=== PATIENT | female | born 1950 | race Caucasian/White ===

== ENCOUNTER 2016-06-24 07:25 | Emergency (ER) | payer OTHER ==
[~2016-06-24] VITALS: Ht 157.5 cm; Wt 73.0 kg
[~2016-06-24 07:25] MED LIST: 1-ME1LIQ PO; ALBU8I INH; BENA40TA PO; CRES20TA PO; GLIM2TAB PO; LORT5TAB PO; METF500 PO; MICR12.5 PO; OXYB5TAB PO; PRED50TA PO; VENL-39 PO; ZITH250T PO
[2016-06-24 07:27] VITALS: BP 144/89; PULSE 120; RESP 16; TEMP 98.5; O2SAT 98
[2016-06-24] MEDS ORDERED: BENA40TA PO (07:49)
[2016-06-24] MEDS ORDERED: BLAC540C PO (07:49)
[2016-06-24] MEDS ORDERED: ROSU40 PO (07:49)
[2016-06-24] MEDS ORDERED: METF500T PO (07:49)
[2016-06-24] MEDS ORDERED: HYDR-3533 PO (07:49)
[2016-06-24] MEDS ORDERED: VENL75TA PO (07:49)
[2016-06-24] MEDS ORDERED: LACTCAP8 PO (07:49)
[2016-06-24] MEDS ORDERED: GLIM2TAB PO (07:49)
[2016-06-24] MEDS ORDERED: OXYB5TAB10 PO (07:49)
[2016-06-24] MEDS ORDERED: GABA300C5 PO (07:49)
[2016-06-24] MEDS ORDERED: AMLO10TA2 PO (07:49)
[2016-06-24] MEDS ORDERED: LORATADINE 10 MG TAB PO ONE (08:00)
[2016-06-24] MEDS ORDERED: methylPREDNISolone SOD SUCC 125 MG/2 ML VIAL IV PUSH ONE (08:00)
[2016-06-24] MEDS ORDERED: SODIUM CHLOR 0.9% 1000 ML INJ 1,000 ML IV SCH (08:00)
[2016-06-24] MEDS ORDERED: PRED-503 PO (08:27)
[2016-06-24] MEDS ORDERED: HYDR25TA5 PO (08:27)
[2016-06-24] MEDS ORDERED: LORA10TA PO (08:27)
--- NOTE | 2016-06-24 08:28 | PD ---
HPI Chief Complaint: Allergic/Adverse Reaction Time Seen by Provider: 07:41 Travel History International Travel<30 days: No Contact w/Intl Traveler<30days: No Traveled to known affect area: No History of Present Illness HPI This 66-year-old woman presents to the emergency department complaining of itchy rash over trunk, as well as swelling to her lips starting yesterday. She is on fosinopril. They recently sprayed her yard for fleas. She has a puppy but she's had it for some time. She is not really an atopic person or had a lot of trouble with allergic reactions in the past. Starting yesterday she started getting itchy red rash her back and chest as well as swelling to her lower lip. 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 No trouble swallowing. No shortness of breath. No other complaints. History Past Medical History Narrative Medical Hypertension Diabetes Influenza Vaccination: Yes Menopausal: Yes Social History Alcohol Use: Yes (WINE X 2 DAILY) Tobacco Use: Yes (1/2 PPD) Allergies-Medications (Allergen,Severity, Reaction): Coded Allergies: Percocet (Verified Allergy, Severe, itchy skin, 06/24/16) Reported Meds & Prescriptions Reported Meds & Active Scripts Active Reported Probiotic (Lactobacillus Acidophilus) 1 Cap Cap 1 Cap PO TIDAC Black Cohosh (Black Cohosh Extract) 40 Mg Cap 40 Mg PO DAILY Metformin (Metformin HCl) 500 Mg Tab 500 Mg PO BIDPC With meals Glimepiride 2 Mg Tab 2 Mg PO DAILY Take with breakfast or first main meal Lortab (Hydrocodone-Acetaminophen) 5-325 Mg Tab 1 Tab PO Q4H PRN Gabapentin 300 Mg Cap 300 Mg PO TID Crestor (Rosuvastatin Calcium) 40 Mg Tab 40 Mg PO DAILY Amlodipine (Amlodipine Besylate) 10 Mg Tab 10 Mg PO DAILY Benazepril (Benazepril HCl) 40 Mg Tab 40 Mg PO DAILY Effexor (Venlafaxine HCl) 75 Mg Tab 75 Mg PO DAILY Ditropan (Oxybutynin Chloride) 5 Mg Tab 5 Mg PO Q12HR Review of Systems Except as stated in HPI: all other systems reviewed are Neg Physical Exam Narrative GENERAL: Well-appearing 66 year-old woman, no acute distress. SKIN: Warm and dry. Diffuse urticarial rash in the chest and trunk and back. HEAD: Atraumatic. Normocephalic. HEENT: Some swelling of the upper lip, bilaterally. Oropharynx is normal without evidence of tongue or oropharyngeal swelling. EYES: Pupils equal and round. No scleral icterus. No injection or drainage. ENT: No nasal bleeding or discharge. Mucous membranes pink and moist. NECK: Trachea midline. No JVD. CARDIOVASCULAR: Regular rate and rhythm. No murmur appreciated. RESPIRATORY: No accessory muscle use. Clear to auscultation. Breath sounds equal bilaterally. No wheezing. GASTROINTESTINAL: Abdomen soft, non-tender, nondistended. Hepatic and splenic margins not palpable. MUSCULOSKELETAL: No obvious deformities. No edema. Data Data Last Documented VS Vital Signs Date Time Temp Pulse Resp B/P Pulse Ox O2 Delivery O2 Flow Rate FiO2 06/24/16 07:37 129 06/24/16 07:27 98.5 16 144/89 98 Orders Sodium Chlor 0.9% 1000 Ml Inj (Ns 1000 M (06/24/16 08:00) Methylprednisolone So Succ Inj (Solumedr (06/24/16 08:00) Loratadine (Claritin) (06/24/16 08:00) MDM Medical Decision Making Medical Screen Exam Complete: Yes Emergency Medical Condition: Yes Differential Diagnosis Allergic reaction, angioedema, adverse reaction to EDITH inhibitor, other Narrative Course 66 old woman with allergic type angioedema. Urticaria as well. We'll place on steroids antihistamines. Even with the urticaria, we'll still have her stop her lisinopril. No clear precipitants otherwise. Diagnosis Primary Impression: Urticaria Additional Impression: Angioedema Qualified Code: T78.3XXA - Angioedema, initial encounter Additional Instructions: Takes prednisone as prescribed. Follow-up with her primary doctor in 2-3 days if not completely well. Change benzapril to HCTZ. Stop benazapril. Return to the emergency department for any worsening swelling, swallowing difficulty, or any trouble breathing. Med/Other Pt SpecificInfo: Prescription(s) given Scripts Hydrochlorothiazide 25 Mg Tab25 Mg PO DAILY #30 TAB Ref 0 Prov:Obdulio Kilpatrick MD 06/24/16 Loratadine 10 Mg Tab10 Mg PO DAILY 3 Days Ref 0 Prov:Obdulio Kilpatrick MD 06/24/16 Prednisone (Deltasone)20 Mg Tab20 Mg PO BID 3 Days Prov:Obdulio Kilpatrick MD 06/24/16 Disposition: 01 DISCHARGE HOME Condition: Stable Obdulio Kilpatrick MD Jun 24, 2016 08:27
[2016-06-24 08:38] VITALS: BP 133/70; PULSE 98; RESP 18; O2SAT 98
== END 2016-06-24 08:52 | disposition home or self-care (01) ==
LOC: PHED 07:25
DX: T78.3XXA Angioneurotic edema, initial encounter (principal)
CPT/HCPCS: 96361; 96374; 99283; J2930; J7030

== ENCOUNTER 2016-10-10 08:54 | Emergency (ER) | payer OTHER ==
[~2016-10-10] VITALS: Ht 157.5 cm; Wt 71.0 kg
[~2016-10-10 08:54] MED LIST changes: -1-ME1LIQ PO; -ALBU8I INH; +AMLO10TA2 PO; +BLAC540C PO; -CRES20TA PO; +GABA300C5 PO; +HYDR-3533 PO; +HYDR25TA5 PO; +LACTCAP8 PO; +LORA10TA PO; -LORT5TAB PO; -METF500 PO; +METF500T PO; -MICR12.5 PO; -OXYB5TAB PO; +OXYB5TAB10 PO; +PRED-503 PO; -PRED50TA PO; +ROSU40 PO; -VENL-39 PO; +VENL75TA PO; -ZITH250T PO
[2016-10-10 08:58] VITALS: BP 145/93; PULSE 99; RESP 16; TEMP 98.4; O2SAT 96
[2016-10-10] MEDS ORDERED: CHERSYP2 PO (09:13)
[2016-10-10] MEDS ORDERED: PRED10PA PO (09:13)
[2016-10-10] MEDS ORDERED: ZITH500T PO (09:13)
--- NOTE | 2016-10-10 09:14 | PD ---
HPI Chief Complaint: Cold / Flu Symptoms Time Seen by Provider: 09:09 Travel History International Travel<30 days: No Contact w/Intl Traveler<30days: No Traveled to known affect area: No History of Present Illness HPI Patient presents for a productive cough and subjective fever for 4 days. She is a smoker. Denies nausea vomiting or diarrhea. No new rashes. Denies sick contacts. PFSH Past Medical History Depression: Yes Cardiovascular Problems: Yes (htn) High Cholesterol: Yes Diabetes: Yes (type 2) Patient Takes Glucophage: Yes Diminished Hearing: No Hypertension: Yes Menopausal: Yes Past Surgical History Genitourinary Surgery: Yes (BLADDER LIFT 05/2014) Social History Alcohol Use: Yes (WINE X 2 DAILY) Tobacco Use: Yes (05/24 PPD) Substance Use: No Allergies-Medications (Allergen,Severity, Reaction): Coded Allergies: Percocet (Verified Allergy, Severe, itchy skin, 10/10/16) Reported Meds & Prescriptions Reported Meds & Active Scripts Active Hydrochlorothiazide 25 Mg Tab 25 Mg PO DAILY Loratadine 10 Mg Tab 10 Mg PO DAILY 3 Days Deltasone (Prednisone) 20 Mg Tab 20 Mg PO BID 3 Days Reported Probiotic (Lactobacillus Acidophilus) 1 Cap Cap 1 Cap PO TIDAC Black Cohosh (Black Cohosh Extract) 40 Mg Cap 40 Mg PO DAILY Metformin (Metformin HCl) 500 Mg Tab 500 Mg PO BIDPC With meals Glimepiride 2 Mg Tab 2 Mg PO DAILY Take with breakfast or first main meal Lortab (Hydrocodone-Acetaminophen) 5-325 Mg Tab 1 Tab PO Q4H PRN Gabapentin 300 Mg Cap 300 Mg PO TID Crestor (Rosuvastatin Calcium) 40 Mg Tab 40 Mg PO DAILY Amlodipine (Amlodipine Besylate) 10 Mg Tab 10 Mg PO DAILY Benazepril (Benazepril HCl) 40 Mg Tab 40 Mg PO DAILY Effexor (Venlafaxine HCl) 75 Mg Tab 75 Mg PO DAILY Ditropan (Oxybutynin Chloride) 5 Mg Tab 5 Mg PO Q12HR Physical Exam Narrative GENERAL: Well-nourished, well-developed patient. SKIN: Focused skin assessment warm/dry. HEAD: Normocephalic. EYES: No scleral icterus. No injection or drainage. NECK: Supple, trachea midline. No JVD or lymphadenopathy. CARDIOVASCULAR: Regular rate and rhythm without murmurs, gallops, or rubs. RESPIRATORY: Breath sounds coarse bilateral bases. No accessory muscle use. GASTROINTESTINAL: Abdomen soft, non-tender, nondistended. MUSCULOSKELETAL: No cyanosis, or edema. BACK: Nontender without obvious deformity. No CVA tenderness. Data Data Last Documented VS Vital Signs Date Time Temp Pulse Resp B/P Pulse Ox O2 Delivery O2 Flow Rate FiO2 10/10/16 08:58 98.4 99 16 145/93 96 MDM Medical Decision Making Medical Screen Exam Complete: Yes Emergency Medical Condition: Yes Differential Diagnosis COPD exacerbation, bronchitis, upper respiratory infection, pneumonia Narrative Course Assessment and plan discussed with patient at bedside Diagnosis Primary Impression: COPD exacerbation Patient Instructions: General Instructions Additional Instructions: Rest fluids and Motrin, encourage smoking cessation, follow-up with PCP Med/Other Pt SpecificInfo: Prescription(s) given Scripts Prednisone (21) 10 mg tab Dose Pack 10 Mg Pack10 Mg PO DIRECTED #1 DSPK Ref 0 Prov:Eduard Romano MD 10/10/16 Guaifenesin-Codeine Liq (Cheratussin AC Liq)100-10 Mg/5 Ml Syrp5-10 Ml PO Q4H PRN (COUGH AND COLD SYMPTOMS) #120 ML Ref 0 Do not exceed 6 doses/24 hrs. Prov:Eduard Romano MD 10/10/16 Azithromycin (Zithromax)500 Mg [id number] Mg PO DAILY #7 TAB Ref 0 Prov:Eduard Romano MD 10/10/16 Disposition: 01 DISCHARGE HOME Condition: Good Eduard Romano MD October 10, 2016 09:14
[2016-10-10] MEDS ORDERED: IPRASOL INH (09:19)
[2016-10-10] MEDS ORDERED: MIRA50TA PO (09:20)
== END 2016-10-10 09:36 | disposition home or self-care (01) ==
LOC: PHEFT 08:54
DX: J44.1 Chronic obstructive pulmonary disease with (acute) exacerbation (principal); E11.9 Type 2 diabetes mellitus without complications; E78.00 Pure hypercholesterolemia, unspecified; I10 Essential (primary) hypertension; F17.210 Nicotine dependence, cigarettes, uncomplicated; Z79.84 Long term (current) use of oral hypoglycemic drugs
CPT/HCPCS: 99283

== ENCOUNTER 2016-12-07 19:37 | Emergency (ER) | payer OTHER ==
[~2016-12-07] VITALS: Ht 157.5 cm; Wt 72.1 kg
[~2016-12-07 19:37] MED LIST changes: -AMLO10TA2 PO; -BENA40TA PO; +CHERSYP2 PO; -HYDR25TA5 PO; +IPRASOL INH; +MIRA50TA PO; -OXYB5TAB10 PO; +PRED10PA PO; +ZITH500T PO
[2016-12-07 19:44] VITALS: BP 135/66; PULSE 83; RESP 18; TEMP 98.2; O2SAT 96
[2016-12-07] MEDS ORDERED: CYMB30CA PO (20:08)
[2016-12-07] MEDS ORDERED: KETOROLAC TROMETHAMINE 60 MG/2 ML (IM) VIAL IM ONE (20:15)
[2016-12-07] MEDS ORDERED: METHOCARBAMOL 1000 MG/10 ML VIAL IM ONE (20:15)
[2016-12-07] MEDS ORDERED: CYCL5TAB PO (20:29)
[2016-12-07] MEDS ORDERED: MELO7.5T4 PO (20:29)
--- NOTE | 2016-12-07 20:29 | PD ---
HPI Chief Complaint: Musculoskeletal Complaint Time Seen by Provider: 19:51 Travel History International Travel<30 days: No Contact w/Intl Traveler<30days: No Traveled to known affect area: No History of Present Illness HPI 66 year-old woman presents emergency Department neck pain and stiffness. She was lifting boxes a couple days ago. Over the past 2 days she's had worsening neck pain and stiffness. He is a history of a lot of back problems. She takes Lortab as needed for her back. She also has had a C-spine fusion in the past. She does not typically of neck pain. No falls or other injuries. She is a little bit paresthesias in her left arm at times, starting really just today, but no weakness or clumsiness. No other complaints. History Past Medical History Medical History: Denies Significant Hx Tetanus Vaccination: Unknown Influenza Vaccination: Yes Menopausal: Yes Social History Alcohol Use: Yes (WINE X 2 DAILY) Tobacco Use: Yes (1/2 PPD) Allergies-Medications (Allergen,Severity, Reaction): Coded Allergies: Percocet (Verified Allergy, Severe, itchy skin, 10/10/16) Reported Meds & Prescriptions Reported Meds & Active Scripts Active Zithromax (Azithromycin) 500 Mg Tab 500 Mg PO DAILY Reported Cymbalta DR (Duloxetine HCl) 30 Mg Capdr 30 Mg PO DAILY Myrbetriq (Mirabegron) 50 Mg Tab 50 Mg PO DAILY Duoneb (Ipratropium-Albuterol Neb) 0.5-2.5 Mg/3 Ml Neb 1 Nebule INH DAILY PRN Black Cohosh (Black Cohosh Extract) 40 Mg Cap 40 Mg PO DAILY Metformin (Metformin HCl) 500 Mg Tab 1,000 Mg PO BIDPC With meals Glimepiride 2 Mg Tab 2 Mg PO DAILY Take with breakfast or first main meal Lortab (Hydrocodone-Acetaminophen) 5-325 Mg Tab 1 Tab PO Q4H PRN Gabapentin 300 Mg Cap 300 Mg PO BID Crestor (Rosuvastatin Calcium) 40 Mg Tab 40 Mg PO DAILY Review of Systems Except as stated in HPI: all other systems reviewed are Neg Physical Exam Narrative GENERAL: Well-appearing 66 old, no acute distress NECK: She has no midline tenderness. She has some left paraspinal muscle tenderness and tenderness in the left trapezius. She does have some stiffness and reluctance to freely range the neck. SKIN: Warm and dry. CARDIOVASCULAR: Warm and well perfused. RESPIRATORY: Normal rate and effort. MUSCULOSKELETAL: No deformities. NEURO: Strength is full and equal in the upper extremities. Sensations intact throughout the upper extremities. Reflexes are symmetric and equal both upper extremities. NEUROLOGICAL: Awake and alert. No gross deficits. Data Data Last Documented VS Vital Signs Date Time Temp Pulse Resp B/P Pulse Ox O2 Delivery O2 Flow Rate FiO2 12/07/16 19:44 98.2 83 18 135/66 96 Orders Ketorolac Inj (Toradol Inj) (12/07/16 20:15) Methocarbamol Inj (Robaxin Inj) (12/07/16 20:15) Lorazepam Inj (Ativan Inj) (12/07/16 20:30) MDM Medical Decision Making Medical Screen Exam Complete: Yes Emergency Medical Condition: Yes Differential Diagnosis Neck strain, fracture, other injury Narrative Course Medical decision making This 66 old woman presents emergent from with some neck spasms. She looks well. We'll give her shot of Ativan and a shot of Toradol. Recommend Flexeril and meloxicam. Diagnosis Primary Impression: Neck strain Additional Instructions: Take meloxicam as prescribed. Take Flexeril as needed for muscle spasm. Follow-up with her primary doctor for not completely well in 3-5 days. Return to the emergency department for any new or worsening symptoms. Med/Other Pt SpecificInfo: Prescription(s) given Scripts Meloxicam 7.5 Mg Tab7.5 Mg PO DAILY #7 TAB Ref 0 Prov:Obdulio Kilpatrick MD 12/07/16 Cyclobenzaprine (Flexeril)5 Mg Tab5 Mg PO TID #15 TAB Ref 0 Prov:Obdulio Kilpatrick MD 12/07/16 Disposition: 01 DISCHARGE HOME Condition: Stable Obdulio Kilpatrikc MD Dec 07, 2016 20:29
[2016-12-07] MEDS ORDERED: LORazepam 2 MG/ML VIAL IM ONE (20:30)
== END 2016-12-07 20:39 | disposition home or self-care (01) ==
LOC: PHEFT 19:37
DX: S16.1XXA Strain of muscle, fascia and tendon at neck level, initial encounter (principal); F17.210 Nicotine dependence, cigarettes, uncomplicated; X50.0XXA Overexertion from strenuous movement or load, initial encounter
CPT/HCPCS: 96372; 99284; J1885; J2060

== ENCOUNTER 2017-08-07 09:11 | Emergency (ER) | payer MEDICARE, OTHER ==
[~2017-08-07] VITALS: Ht 157.5 cm; Wt 68.0 kg
[~2017-08-07 09:11] MED LIST changes: -CHERSYP2 PO; +CYCL5TAB PO; +CYMB30CA PO; -LACTCAP8 PO; -LORA10TA PO; +MELO7.5T27 PO; -PRED-503 PO; -PRED10PA PO; -VENL75TA PO
[2017-08-07 09:22] VITALS: BP 123/65; PULSE 123; RESP 18; TEMP 100; O2SAT 98
[2017-08-07] MEDS ORDERED: HYDR-4107 PO (09:58)
[2017-08-07] MEDS ORDERED: LOSA100T PO (09:58)
[2017-08-07] MEDS ORDERED: LORazepam 2 MG/ML VIAL IV PUSH SCH (10:15)
[2017-08-07] MEDS ORDERED: DEXAMETHASONE SOD PHOS 20 MG/5 ML VIAL IV ONE (10:15)
[2017-08-07] MEDS ORDERED: MORPHINE SULFATE 4 MG/ML INJ IV ONE (10:15)
--- NOTE | 2017-08-07 10:17 | PD ---
HPI . Sciatica Chief Complaint: Pain: Acute or Chronic Time Seen by Provider: 10:04 Travel History International Travel<30 days: No Contact w/Intl Traveler<30days: No Traveled to known affect area: No History of Present Illness HPI This patient presents for treatment of the acute exacerbation of chronic sciatica. She is managed by pain management for her sciatica. She takes [place] 5 mg every 4 hours. She states that she had exacerbation of the sciatica starting approximately 3 days ago. She has no idea what may have caused it to flareup. She states that it flares up from time to time for no apparent reason. The pain is rated 10/10. It is exacerbated by bending over. There are no relieving factors. She states that she is scheduled to have an implant removed tomorrow so that she can have an MRI done to further evaluate the sciatica. PFSH Past Medical History Hx Anticoagulant Therapy: No Depression: Yes Cardiovascular Problems: Yes (htn) High Cholesterol: Yes Diabetes: Yes (type 2 ) Patient Takes Glucophage: Yes Diminished Hearing: No Hypertension: Yes Respiratory: Yes (copd) Tetanus Vaccination: Unknown ?: Not Menopausal: Yes Past Surgical History Genitourinary Surgery: Yes (BLADDER LIFT 05/2014) Hysterectomy: Yes (htn on meds) Social History Alcohol Use: Yes (WINE X 2 DAILY) Tobacco Use: Yes (2 PPD) Substance Use: No Allergies-Medications (Allergen,Severity, Reaction): Coded Allergies: acetaminophen (Unverified Allergy, Severe, itchy skin, 08/07/17) oxycodone (Unverified Allergy, Severe, itchy skin, 08/07/17) Reported Meds & Prescriptions Reported Meds & Active Scripts Active Reported Losartan (Losartan Potassium) 100 Mg Tab 100 Mg PO DAILY Hydrocodone-Acetaminophen 5-300 Mg Tab 1 Tab PO Q6H PRN Cymbalta DR (Duloxetine HCl) 30 Mg Capdr 30 Mg PO DAILY Black Cohosh (Black Cohosh Extract) 40 Mg Cap 40 Mg PO DAILY Metformin (Metformin HCl) 500 Mg Tab 1,000 Mg PO BIDPC With meals Glimepiride 2 Mg Tab 2 Mg PO DAILY Take with breakfast or first main meal Crestor (Rosuvastatin Calcium) 40 Mg Tab 40 Mg PO DAILY Review of Systems Except as stated in HPI: all other systems reviewed are Neg Physical Exam Narrative GENERAL: Awake and alert. She looks uncomfortable. SKIN: Warm and dry. HEAD: Normocephalic/atraumatic. EYES: Pupils are equal. Extraocular movements are intact. NECK: Normal range of motion. RESPIRATORY: Nonlabored respirations. MUSCULOSKELETAL: Atraumatic. There is no tenderness to palpation of the right buttock and leg. NEUROLOGICAL: Nonfocal. PSYCHIATRIC: Appropriate mood and affect. Data Data Last Documented VS Vital Signs Date Time Temp Pulse Resp B/P (MAP) Pulse Ox O2 Delivery O2 Flow Rate FiO2 08/07/17 09:22 100.0 123 18 123/65 (84) 98 Orders Orders ^ Saline Lock (08/07/17 10:11) Dexamethasone Inj (Decadron Inj) (08/07/17 10:15) Morphine Inj (Morphine Inj) (08/07/17 10:15) Lorazepam Inj (Ativan Inj) (08/07/17 10:15) Lorazepam Inj (Ativan Inj) (08/07/17 10:45) Dexamethasone Inj (Decadron Inj) (08/07/17 10:45) Morphine Inj (Morphine Inj) (08/07/17 10:45) MDM Medical Decision Making Medical Screen Exam Complete: Yes Emergency Medical Condition: Yes Medical Record Reviewed: Yes (e-forcse was reviewed. She is getting her medications appropriately from her pain clinic.) Differential Diagnosis Differential diagnosis of leg pain includes but is not limited to lumbar radiculopathy, arthritis, myalgias, DVT, ruptured Restrepo's cyst. Narrative Course Patient presents for the acute exacerbation of chronic sciatica. I have ordered IV Decadron, morphine and Ativan. 11:45 AM Patient reports that she is feeling much better. Diagnosis Primary Impression: Sciatica Qualified Codes: M54.31 - Sciatica, right side Patient Instructions: Narcotic given in the ED Med/Other Pt SpecificInfo: Prescription(s) given Scripts Prednisone (Prednisone) 50 Mg Tab 50 MG PO DAILY, #5 TAB 0 Refills Prov: Nafisa Gill MD 08/07/17 Diazepam (Valium) 10 Mg Tab 10 MG PO TID Y for muscle spasm, #15 TAB 0 Refills Prov: Nafisa Gill MD 08/07/17 Disposition: 01 DISCHARGE HOME Condition: Stable Nafisa Gill MD Aug 07, 2017 10:17
[2017-08-07] MEDS ORDERED: DEXAMETHASONE SOD PHOS 20 MG/5 ML VIAL IM ONE (10:45)
[2017-08-07] MEDS ORDERED: MORPHINE SULFATE 4 MG/ML INJ IM ONE (10:45)
[2017-08-07] MEDS ORDERED: LORazepam 2 MG/ML VIAL IM SCH (10:45)
[2017-08-07] MEDS ORDERED: PRED50 PO (11:47)
[2017-08-07] MEDS ORDERED: DIAZ10 PO (11:47)
[2017-08-07 11:55] VITALS: BP 119/67
== END 2017-08-07 12:09 | disposition home or self-care (01) ==
LOC: PHED 09:11
DX: M54.31 Sciatica, right side (principal); E78.00 Pure hypercholesterolemia, unspecified; I10 Essential (primary) hypertension; E11.9 Type 2 diabetes mellitus without complications; J44.9 Chronic obstructive pulmonary disease, unspecified; F32.9 Major depressive disorder, single episode, unspecified; F17.210 Nicotine dependence, cigarettes, uncomplicated; Z88.6 Allergy status to analgesic agent; Z88.5 Allergy status to narcotic agent
CPT/HCPCS: 96372; 96374; 96375; 99284; J1100; J2060; J2270

== ENCOUNTER 2017-09-08 11:37 | Emergency (ER) | payer MEDICARE, OTHER ==
[~2017-09-08] VITALS: Ht 157.5 cm; Wt 70.0 kg
[~2017-09-08 11:37] MED LIST changes: -CYCL5TAB PO; +DIAZ10 PO; -GABA300C5 PO; -HYDR-3533 PO; +HYDR-4107 PO; -IPRASOL INH; +LOSA100T PO; -MELO7.5T27 PO; -MIRA50TA PO; +PRED50 PO; -ZITH500T PO
[2017-09-08 11:39] VITALS: BP 120/62; PULSE 79; RESP 16; TEMP 98.2; O2SAT 96
[2017-09-08] MEDS ORDERED: PRED50 PO (12:53)
[2017-09-08] MEDS ORDERED: DIAZ10 PO (12:53)
--- NOTE | 2017-09-08 12:53 | PD ---
HPI Chief Complaint: Musculoskeletal Complaint Time Seen by Provider: 12:26 Travel History International Travel<30 days: No Contact w/Intl Traveler<30days: No Traveled to known affect area: No History of Present Illness HPI 67-year-old female here with left-sided sciatic pain ongoing for the last 2 days. She reports pain in the left low back radiating into the buttocks and thigh. Symptom severity is moderate. She denies injury trauma. No fever, chills, incontinence, saddle anesthesia, paresthesia or weakness of the extremity. Pain is aggravated by movement and slightly relieved with rest. PFSH Past Medical History Hx Anticoagulant Therapy: No Depression: Yes Cardiovascular Problems: Yes (htn) High Cholesterol: Yes Diabetes: Yes (type 2 ) Patient Takes Glucophage: No Diminished Hearing: No Hypertension: Yes Respiratory: Yes (copd) ?: Not Menopausal: Yes Past Surgical History Genitourinary Surgery: Yes (BLADDER LIFT 05/2014) Hysterectomy: Yes (htn on meds) Social History Alcohol Use: Yes (WINE X 2 DAILY) Tobacco Use: Yes (05/24 PPD) Substance Use: No Allergies-Medications (Allergen,Severity, Reaction): Coded Allergies: acetaminophen (Unverified Allergy, Severe, itchy skin, 09/08/17) oxycodone (Unverified Allergy, Severe, itchy skin, 09/08/17) Reported Meds & Prescriptions Reported Meds & Active Scripts Active Prednisone 50 Mg Tab 50 Mg PO DAILY Valium (Diazepam) 10 Mg Tab 10 Mg PO TID PRN Reported Losartan (Losartan Potassium) 100 Mg Tab 100 Mg PO DAILY Hydrocodone-Acetaminophen 5-300 Mg Tab 1 Tab PO Q6H PRN Cymbalta DR (Duloxetine HCl) 30 Mg Capdr 30 Mg PO DAILY Black Cohosh (Black Cohosh Extract) 40 Mg Cap 40 Mg PO DAILY Metformin (Metformin HCl) 500 Mg Tab 1,000 Mg PO BIDPC With meals Glimepiride 2 Mg Tab 2 Mg PO DAILY Take with breakfast or first main meal Crestor (Rosuvastatin Calcium) 40 Mg Tab 40 Mg PO DAILY Review of Systems Except as stated in HPI: all other systems reviewed are Neg General / Constitutional: No: Fever Eyes: No: Visual changes HENT: No: Headaches Cardiovascular: No: Chest Pain or Discomfort Respiratory: No: Shortness of Breath Gastrointestinal: No: Abdominal Pain Physical Exam Narrative GENERAL: Alert well-appearing, well-nourished female lying comfortably on stretcher. Patient cries out in pain when she attempts to move SKIN: Warm and dry. HEAD: Normocephalic. EYES: No scleral icterus. No injection or drainage. NECK: Supple, trachea midline. No JVD or lymphadenopathy. CARDIOVASCULAR: Regular rate and rhythm without murmurs, gallops, or rubs. RESPIRATORY: Breath sounds equal bilaterally. No accessory muscle use. GASTROINTESTINAL: Abdomen soft, non-tender, nondistended. MUSCULOSKELETAL: No cyanosis, or edema. Normal strength and sensation in extremities BACK: +TTP left sacroiliac joint. without obvious deformity. No midline spine tenderness. No CVA tenderness. Data Data Last Documented VS Vital Signs Date Time Temp Pulse Resp B/P (MAP) Pulse Ox O2 Delivery O2 Flow Rate FiO2 09/08/17 11:39 98.2 79 16 120/62 (81) 96 Orders Orders Ketorolac Inj (Toradol Inj) (09/08/17 13:00) MDM Medical Decision Making Medical Screen Exam Complete: Yes Emergency Medical Condition: Yes Differential Diagnosis sciatica, lumbar strain, herniated disk Narrative Course 67-year-old female with history of sciatica here with sciatic pain. She has a normal neurologic exam. She was given a shot of Toradol and Norflex reports symptom improvement. Diagnosis Primary Impression: Sciatica Qualified Codes: M54.32 - Sciatica, left side Referrals: Pain Management Additional Instructions: Follow-up with pain management on Tuesday Scripts Prednisone (Prednisone) 50 Mg Tab 50 MG PO DAILY, #5 TAB 0 Refills Prov: Coco Phillips 09/08/17 Diazepam (Valium) 10 Mg Tab 10 MG PO TID Y for muscle spasm, #15 TAB 0 Refills Prov: Coco Phillips 09/08/17 Disposition: 01 DISCHARGE HOME Condition: Stable Coco Phillips Sep 08, 2017 12:53
[2017-09-08] MEDS ORDERED: KETOROLAC TROMETHAMINE 60 MG/2 ML (IM) VIAL IM ONE (13:00)
== END 2017-09-08 13:19 | disposition home or self-care (01) ==
LOC: PHEFT 11:37
DX: M54.32 Sciatica, left side (principal); E11.9 Type 2 diabetes mellitus without complications; E78.00 Pure hypercholesterolemia, unspecified; F32.9 Major depressive disorder, single episode, unspecified; I10 Essential (primary) hypertension; J44.9 Chronic obstructive pulmonary disease, unspecified; F17.200 Nicotine dependence, unspecified, uncomplicated
CPT/HCPCS: 96372; 99283; J1885